=== PATIENT | female | born 1960 | race Caucasian/White ===

== ENCOUNTER → 2022-09-26 | Outpatient (CLI) | payer BC ==
--- NOTE | 2022-09-26 15:48 | USB ---
Reason for Exam: Clinical finding. Patient History: Mother had breast cancer, age 78. Risk Values: Liya 5 year model risk: 2.4%. NCI Lifetime model risk: 12.1%. Findings: The lateral section of the breast of the right breast, the axilla of the right breast and the retroareolar of the right breast were scanned. Electronically signed and approved by: Romeo Cabello M.D.
== END | disposition home or self-care (01) ==
LOC: RADUSWWP 14:44
PROVIDERS: ATTEND Family Medicine
DX: N64.4 Mastodynia (principal); Z80.3 Family history of malignant neoplasm of breast